=== PATIENT | male | born 1980 | race American Indian/Alaskan Native ===

== ENCOUNTER 2016-05-22 11:53 | Emergency (ER) | payer SELFPAY ==
--- NOTE | 2016-05-22 13:52 | Emergency Department Report ---
ED Extremity Problem HPI - General Chief complaint: Extremity Injury, Lower Stated complaint: RT KNEE SWELLING Time Seen by Provider: 05/22/16 13:39 Source: patient Mode of arrival: Ambulatory Limitations: No Limitations - History of Present Illness Initial comments: Patient complaining of swelling to right thigh. 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 Patient denies any calf pain, chest pain, inspiratory chest pain, dyspnea on exertion, cough, hemoptysis or syncope. Patient states he has had this happen multiple times in the past and really all he needs is a work note for the next day and a half so he consented home and ice this. Patient during plain films stating he doesn't have insurance and really just needs a work note. MD Complaint: extremity pain, extremity swelling -: Gradual -: Yes myalgia, No arthralgia, No fever, No associated dyspnea Radiation: none Severity scale (0 -10): 4 Quality: aching Consistency: constant Improves with: cold therapy, immobilization Worsens with: weight bearing, walking, exertion Associated Symptoms: denies other symptoms. denies: chest pain, shortness of breath, fever, myalgias, arthralgias, rash - Related Data Previous Rx's Medication Instructions Recorded Last Taken Type Methocarbamol [Robaxin TAB] 750 mg PO Q8H PRN #21 tablet 05/22/16 Unknown Rx Allergies Allergy/AdvReac Type Severity Reaction Status Date / Time No Known Allergies Allergy Unverified 05/22/16 12:14 ED Review of Systems ROS: Stated complaint: RT KNEE SWELLING Other details as noted in HPI Comment: All other systems reviewed and negative Constitutional: no symptoms reported Eyes: as per HPI ENT: as per HPI Respiratory: no symptoms reported Cardiovascular: denies: chest pain, palpitations, dyspnea on exertion, orthopnea , edema, syncope, paroxysmal nocturnal dyspnea Gastrointestinal: denies: abdominal pain, nausea, vomiting, diarrhea Musculoskeletal: myalgia Skin: denies: rash, lesions, change in color Neurological: denies: headache, weakness ED Past Medical Hx - Past Medical History Previous Medical History?: No - Surgical History Past Surgical History?: No - Social History Smoking Status: Current Every Day Smoker Substance Use Type: Alcohol - Medications Home Medications: Home Medications Medication Instructions Recorded Confirmed Last Taken Type Methocarbamol [Robaxin TAB] 750 mg PO Q8H PRN #21 tablet 05/22/16 Unknown Rx ED Physical Exam - General Limitations: No Limitations General appearance: alert, in no apparent distress - Head Head exam: Present: atraumatic, normocephalic - Eye Eye exam: Present: normal appearance, PERRL, EOMI - ENT ENT exam: Present: normal exam, mucous membranes dry - Neck Neck exam: Present: normal inspection, full ROM. Absent: tenderness, meningismus, lymphadenopathy - Respiratory Respiratory exam: Present: normal lung sounds bilaterally. Absent: respiratory distress - Extremities Exam Extremities exam: Present: normal inspection, normal capillary refill - Expanded Lower Extremity Exam Right Hip exam: Present: normal inspection, full ROM. Absent: tenderness, swelling, ecchymosis, deformity, crepidus, erythema Upper Leg exam: Present: full ROM (significant swelling of the vastus lateralis right leg with no warmth, erythema, lymphangitis, or lymphadenopathy. The swelling does not restrict range of motion. In seems to bother patient very little.), tenderness, swelling. Absent: ecchymosis, deformity, crepidus, dislocation, erythema Knee exam: Present: normal inspection, full ROM. Absent: tenderness, swelling, abrasion, laceration, ecchymosis, deformity, crepidus, dislocation, erythema, effusion, pain w/ pronation/supination, posterior draw sign, pain/laxity with valgus, pain/laxity with varus, full knee extension Lower Leg exam: Present: normal inspection, full ROM. Absent: tenderness, swelling, abrasion, ecchymosis, deformity, crepidus, erythema, palpable cord, Shama's sign Neuro vascular tendon exam: Present: no vascular compromise. Absent: pulse deficit, abnormal cap refill, motor deficit, sensory deficit, tendon deficit, extremity cold to touch Gait: Positive: observed and normal - Back Exam Back exam: Present: normal inspection, full ROM. Absent: tenderness, CVA tenderness (R), CVA tenderness (L) - Neurological Exam Neurological exam: Present: alert, oriented X3 - Skin Skin exam: Present: warm, dry, intact ED Course Vital Signs 05/22/16 12:14 Temperature 98.5 F Pulse Rate 85 Respiratory 17 Rate Blood Pressure 155/81 O2 Sat by Pulse 100 Oximetry Critical care attestation.: If time is entered above; I have spent that time in minutes in the direct care of this critically ill patient, excluding procedure time. ED Disposition Clinical Impression: Muscular pain Disposition: DISCHARGED TO HOME OR SELFCARE Is pt being admited?: No Condition: Stable Instructions: Muscle Strain (ED) Prescriptions: Methocarbamol [Robaxin TAB] 750 mg PO Q8H PRN #21 tablet PRN Reason: Pain Referrals: PRIMARY MD SHANELL [Primary Care Provider] - 3-5 Days BETITO LIN MD [Staff Physician] - 3-5 Days Forms: Work/School Release Form
[2016-05-22 14:18] VITALS: BP 148/76
== END 2016-05-22 14:13 | disposition home or self-care (01) ==
LOC: ED 11:53
DX: M79.1 Myalgia (principal); F17.200 Nicotine dependence, unspecified, uncomplicated
CPT/HCPCS: 99282